=== PATIENT | female | born 2000 | race Two or more races ===

== ENCOUNTER 2022-11-27 14:46 | Outpatient (CLI) | payer OTHER | END 2022-11-27 15:55 | disposition home or self-care (01) | LOC: PRENATAL 14:46 | PROVIDERS: ATTEND Obstetrics & Gynecology Maternal & Fetal Medicine | DX: O35.9XX0 Maternal care for (suspected) fetal abnormality and damage, unspecified, not applicable or unspecified (principal); O35.3XX0 Maternal care for (suspected) damage to fetus from viral disease in mother, not applicable or unspecified; Z3A.21 21 weeks gestation of pregnancy ==

== ENCOUNTER 2022-12-14 06:49 | Emergency (ER) | payer OTHER ==
[~2022-12-14] VITALS: Ht 157.5 cm; Wt 91.2 kg
== END 2022-12-14 08:33 | disposition home or self-care (01) ==
LOC: ER 06:49
DX: O26.892 Other specified pregnancy related conditions, second trimester (principal); Z3A.24 24 weeks gestation of pregnancy; K59.00 Constipation, unspecified

== ENCOUNTER 2023-02-20 13:54 | Outpatient (CLI) | payer OTHER | END 2023-02-20 14:54 | disposition home or self-care (01) | LOC: PRENATAL 13:54 | PROVIDERS: ATTEND Obstetrics & Gynecology Maternal & Fetal Medicine | DX: O26.849 Uterine size-date discrepancy, unspecified trimester (principal); O36.8199 Decreased fetal movements, unspecified trimester, other fetus; O24.419 Gestational diabetes mellitus in pregnancy, unspecified control; Z3A.33 33 weeks gestation of pregnancy ==

== ENCOUNTER 2023-03-05 17:01 | Inpatient (IN) | payer OTHER ==
[~2023-03-05] VITALS: Ht 160 cm; Wt 2.3 kg
[2023-03-05] MEDS ORDERED: PRENATAL TABLE1 EAC1 PO (18:12)
== END 2023-03-10 10:57 | disposition home or self-care (01) | DRG 787 ==
LOC: OBS/DEL 17:01 → LDR 03-06 08:29 → OBS/DEL 03-06 08:29 → LDR 03-07 19:40 → OB/GYN 03-08 12:37
PROVIDERS: ADMIT Obstetrics & Gynecology; ATTEND Obstetrics & Gynecology
PROC: 4A1HXCZ Monitoring of Products of Conception, Cardiac Rate, External Approach (ICD-10-PCS; 2023-03-06)
PROC: BY4FZZZ Ultrasonography of Third Trimester, Single Fetus (ICD-10-PCS; 2023-03-06)
PROC: 10D00Z1 Extraction of Products of Conception, Low, Open Approach (ICD-10-PCS; principal; 2023-03-07 13:00)
DX: O14.14 Severe pre-eclampsia complicating childbirth (principal); O41.03X0 Oligohydramnios, third trimester, not applicable or unspecified; O36.8130 Decreased fetal movements, third trimester, not applicable or unspecified; O60.14X0 Preterm labor third trimester with preterm delivery third trimester, not applicable or unspecified; O24.420 Gestational diabetes mellitus in childbirth, diet controlled; Z3A.35 35 weeks gestation of pregnancy; Z37.0 Single live birth

== ENCOUNTER 2023-05-01 17:34 | Emergency (ER) | payer OTHER ==
[~2023-05-01] VITALS: Ht 157.5 cm; Wt 88.5 kg
[~2023-05-01 17:34] MED LIST: PRENATAL TABLE1 EAC1 PO
[2023-05-01 19:11] LABS: PH,URINE 5.5 (5.0-8.0); URINE APPEARANCE Clear; URINE BILIRRUBIN Negative (NEGATIVE); URINE BLOOD Negative; URINE COLOR Yellow; URINE GLUCOSE Negative (NEGATIVE); URINE LEUKOCYTE Trace; URINE NITRATE Negative; URINE PROTEIN Trace (NEGATIVE)
[2023-05-01 19:15] LABS: URINE BACTERIA 1157.9 uL (0.0-1933); URINE EPITHELIAL CELLS 18.2 uL (0.0-38.8); URINE WBC 24.8 uL (0.0-23.2)
[2023-05-01 19:26] LABS: HEMATOCRIT 38.8 % (36.0-45.00); HEMOGLOBIN 12.6 g/dL (12.0-15.00); MEAN CELL VOLUME 82.7 fL (80.00-100.00); MEAN CORPUSCULAR HEMOGLOBIN 26.9 pg (27.00-32.0); MEAN CORPUSCULAR HGB CONC 32.5 g/dl (32.0-36.0); PLATELET COUNT 157 K/uL (150-450); RED BLOOD COUNT 4.69 M/uL (4.00-6.00); RED CELL DISTRIBUTION WIDTH 14.7 % (11.5-14.5)
== END 2023-05-01 20:03 | disposition home or self-care (01) ==
LOC: ER 17:34
PROVIDERS: General Practice
DX: N39.0 Urinary tract infection, site not specified (principal)

== ENCOUNTER 2023-06-12 16:52 | Emergency (ER) | payer OTHER ==
[~2023-06-12] VITALS: Ht 157.5 cm; Wt 88.5 kg
== END 2023-06-12 22:01 | disposition home or self-care (01) ==
LOC: ER 16:52
DX: N61.0 Mastitis without abscess (principal)

== ENCOUNTER 2024-03-08 20:44 | Emergency (ER) | payer OTHER ==
[~2024-03-08] VITALS: Ht 160 cm; Wt 81.6 kg
[2024-03-08] MEDS ORDERED: KETOROLAC TROMETHAMINE 30 MG VIAL IM STA (22:33)
[2024-03-08] MEDS ORDERED: ONDANSETRON 4 MG TAB.RAPDIS PO STA (22:33)
[2024-03-08] MEDS ORDERED: ONDANSETRON 4 MG TAB.RAPDIS PO ONE (22:38)
[2024-03-08] MEDS ORDERED: KETOROLAC TROMETHAMINE 30 MG VIAL ONE (22:38)
[2024-03-09] MEDS ORDERED: IBU800 MG PO (00:06)
[2024-03-09] MEDS ORDERED: BACLOFEN5 MG PO (00:06)
== END 2024-03-09 00:27 | disposition home or self-care (01) ==
LOC: ER 20:46
DX: S39.012A Strain of muscle, fascia and tendon of lower back, initial encounter (principal); M25.561 Pain in right knee
CPT/HCPCS: 96372; 99282; J1885

== ENCOUNTER 2024-05-23 08:09 | Outpatient (CLI) | payer OTHER ==
[~2024-05-23 08:09] MED LIST changes: +BACLOFEN5 MG PO; +IBU800 MG PO
== END 2024-05-23 08:12 | disposition home or self-care (01) ==
LOC: PRENATAL 08:09
PROVIDERS: ATTEND Obstetrics & Gynecology Maternal & Fetal Medicine
DX: O36.80X0 Pregnancy with inconclusive fetal viability, not applicable or unspecified (principal); Z36.82 Encounter for antenatal screening for nuchal translucency; O34.219 Maternal care for unspecified type scar from previous cesarean delivery; O14.90 Unspecified pre-eclampsia, unspecified trimester; Z3A.13 13 weeks gestation of pregnancy

== ENCOUNTER → 2024-06-05 | Emergency (ER) | payer OTHER ==
[~2024-06-05] VITALS: Ht 160 cm; Wt 77.1 kg
[~2024-06-05] MED LIST changes: +PRENATAL + DHA1 EAC1 PO
== END | disposition left against medical advice (07) ==
LOC: ER 21:24
DX: Z53.21 Procedure and treatment not carried out due to patient leaving prior to being seen by health care provider (principal)

== ENCOUNTER → 2024-07-11 15:18 | Outpatient (CLI) | payer OTHER | END | disposition home or self-care (01) | LOC: PRENATAL 15:18 | PROVIDERS: ATTEND Obstetrics & Gynecology Maternal & Fetal Medicine | DX: O35.3XX0 Maternal care for (suspected) damage to fetus from viral disease in mother, not applicable or unspecified (principal); O44.00 Complete placenta previa NOS or without hemorrhage, unspecified trimester; O34.219 Maternal care for unspecified type scar from previous cesarean delivery; O14.90 Unspecified pre-eclampsia, unspecified trimester; Z3A.20 20 weeks gestation of pregnancy ==